=== PATIENT | male | born 1950 | race Caucasian/White ===

== ENCOUNTER 2025-04-15 12:57 | Outpatient (CLI) | payer MEDICARE, SELFPAY ==
--- NOTE | ~2025-04-15 | CT_ITS ---
EXAMINATION: CT_STKSHOLDWO_CT DATE: 04/15/2025 13:18 INDICATION: Left shoulder osteoarthritis. Preoperative planning. TECHNIQUE: Computed tomography (CT) of the left shoulder was performed without intravenous contrast. Automated exposure control and iterative reconstruction technique were employed. The dose-length product was 611.26 mGy-cm. COMPARISON: Left shoulder radiographs 03/18/2025 FINDINGS: Calcified left lung nodule and calcified left hilar lymph nodes are consistent with old granulomatous disease. There are changes of distal clavicle resection. No fracture. There is mild osteoarthritis of glenohumeral joint. There are suture anchors in the greater tuberosity of proximal humerus. There is mild fatty atrophy of the rotator cuff muscles. IMPRESSION: 1. Mild osteoarthritis of left glenohumeral joint. Reviewed, dictated and finalized at location E.
--- NOTE | 2025-04-15 13:15 | ECG_ITS ---
Test Date: 2025-04-15 13:30:54 Measurements Intervals [place] Rate: 64 P: 23 NE: 171 QRS: -34 QRSD: 91 T: 32 QT: 389 QTc: 402 Interpretive Statements SINUS RHYTHM LEFT AXIS DEVIATION INCOMPLETE RIGHT BUNDLE BRANCH BLOCK DELAYED PRECORDIAL R/S TRANSITION BORDERLINE ECG No previous ECG available for comparison Electronically Signed On 04-15-2025 13:37:26 CDT by Parminder Roque D.O.
--- OUTSIDE RECORDS SUMMARY | 2025-04-15 13:53 | XMS_ITS | Clinical Summary ---
Author Organization [address] Address [address] [place] [address] Care Team Providers Care Control Tower Operator Name Role Phone Kee Mcclendon MD Unavailable [phone] Adriana Durand DO Primary Care Provider [phone] Allergies Active Allergy Reactions Criticality Noted Date Comments Codeine Nausea only,Vomiting Reaction: NAUSEA, VOMITTING, Medications multivitamin with minerals tablet Take by mouth. Active aspirin-calcium carbonate 81 mg-300 mg calcium(777 mg) tablet Take 81 mg by mouth. 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 Patient tolerated the procedure well. Advised to watch for signs of infection or bleeding if any of these occur to go to the ER or call me. Advise that if there is limited to no improvement with this he should return to the office and we can discuss other options. If this is effective then we can watch and wait and depending on how long it is effective for we can discuss other options down the road. He exhibited understanding and is in agreement with this plan of care. Assessment & Plan (01/18/2025 10:56 AM CDT): I advised the patient of the findings. I do think based on his clinical exam that he is completely ruptured his rotator cuff tendon again. I went over with him that due to his osteoarthritis in his age she is not necessarily a great candidate for a rotator cuff repair at this point, so we need to treat this conservatively. I offered him a steroid injection under ultrasound guidance into the glenohumeral joint for pain control as well as to improve the pain inhibition that he is currently having. I also advised on use of physical therapy to help strengthen in his shoulder and stabilize it better. We will do these two things and watch and wait and see how he improves. I did advise him that there is an increased risk of an adhesive capsulitis as a result of this, and if this does occur it may require further intervention. He exhibited understanding and is in agreement with this plan of care. Dyslipidemia 01/26/2018 Chronic ITP (idiopathic thrombocytopenia) 2017 Gastrocnemius equinus of left lower extremity Gastrocnemius equinus of right lower extremity 0 10/13/2016 GERD (gastroesophageal reflux disease) 6 Encounters Date Type Department Care Team Description 02/06/2025 Orders Only [facility] Primary Care at [address] [place] [address] Nolan Cruz DO Primary osteoarthritis of left shoulder (Primary Dx); Left shoulder pain, unspecified chronicity; Traumatic complete tear of left rotator cuff, initial encounter 02/04/2025 9:00 AM CDT Office Visit [facility] at [address] [address] Nolan Cruz, Primary osteoarthritis of left shoulder (Primary Dx); Left shoulder pain, unspecified chronicity; Traumatic complete tear of left rotator cuff, initial encounter 01/18/2025 10:00 AM CDT Office Visit [facility] at [address] [address] Nolan Cruz, Left shoulder pain, unspecified chronicity (Primary Dx); Traumatic complete tear of left rotator cuff, initial encounter; Primary osteoarthritis of left shoulder 01/18/2025 9:35 AM CDT Ancillary Procedure [facility] at [address] [address] Left shoulder pain, unspecified chronicity 01/18/2025 Orders Only [facility] Primary [facility] at [address] [address] Nolan Cruz, Primary osteoarthritis of left shoulder (Primary Dx); Left shoulder pain, unspecified chronicity; Traumatic complete tear of left rotator cuff, initial encounter from Last 3 Months Surgical History Surgery Date Site/Laterality Comments REPLACEMENT TOTAL KNEE BILATERAL TOE SURGERY SHOULDER ARTHROSCOPY W/ ROTATOR CUFF REPAIR Bilateral BACK SURGERY WRIST ARTHRODESIS 01/06/2023 Left Medical History Medical History Date Comments PONV (postoperative nausea and vomiting) Hx of adenomatous colonic polyps Motion sickness Arthritis Hypertension Degenerative joint disease Dyslipidemia GERD (gastroesophageal reflux disease) Thrombocytopenia Social History Tobacco Use Types Packs/Day Years Used Date Smoking Tobacco: Never Smokeless Tobacco: Never Tobacco Cessation:Counseling Given: Not Answered Alcohol Use Standard Drinks/Week Comments Yes 0 (1 standard drink = 0.6 oz pur e alcohol) AUDIT-C Answer Date Recorded Q1: How often do you have a drink containing alc ohol? Monthly or less 12/28/2022 Q2: How many drinks containi ng alcohol do you have on a typical day when you are drinking? 1 or 2 12/28/2022 Q3: How often do you have si x or more drinks on one occasion? Less than monthly 12/28/2022 Personal Safety Answer Date Recorded Have you ever been in or are you currently in a harmful physical or emotional relationship or is someone making you feel afraid or unsafe? Denies 01/06/2023 Sex and Gender Information Value Date Recorded Sex Assigned at Not on file Legal Sex Male 1:44 AM [employer] Gender Identity Male 11/29/2023 4:22 PM CDT Sexual Orientation Not on file Obstetrics History Last Filed Vital Signs Vital Sign Reading Time Taken Comments Blood Pressure 210/88 02/04/2025 8:57 AM CDT Pulse 66 02/04/2025 8:57 AM CDT Temperature 36.3 C (97.3 F) 01/06/2023 11:50 AM CDT Respiratory Rate 18 01/06/2023 12:2 0 PM CDT Oxygen Saturation 100% 01/06/2023 12: 20 PM CDT Inhaled Oxygen Concentration - - Weight 104.1 kg (229 lb 9.6 oz) 02/04/2025 8:57 AM CDT Height 181.6 cm (5' 11.5) 01/18/2025 9:46 AM CD T Body Mass Index 31.58 01/18/2025 9:46 AM CDT Plan of Treatment Health Maintenance Due Date Last Done Comments Colon Cancer Screening-Colonoscopy 1950 Depression Screening 1950 Hepatitis C Screening 1950 Hepatitis B Screening 1968 Pneumococcal vaccine 65+ (1 of 1 - PCV) 2000 Well Visit 65+ 2015 DTaP/Tdap/Td Vaccine (1 - Tdap) 10/04/2022 3 Fall Risk Assessment 12/29/2023 12/28/2022 Influenza Vaccine (#1) 2025 4, 04/20/2021, 03/31/2020 Zoster Vaccine Completed 04/09/2019, 12/07/2018 Medical Devices Implanted Type Area Recoverer Device Identifier Shelf Expiration Date Model / Serial / Lot Other - See Comments Other - see comments Bilatera l: Knee Description:Bilateral knee r eplacement Synthes Lcp 118mm Fusion Wrist Standard Bend Plate Bone Stainless Steel 02.110.150 - [id number] Implanted:Qty: 1 on 01/06/2023 by Titi Diaz MD at [facility] Left: Wrist Synthes I 02.110.15 0 / / Lifenet Vivigen Allograft Graft 5 Cc Bone Cortical Cancellous Deminerali Bl-1500-002 - [id number] - [id number] Implanted:Qty: 1 on 01/06/2023 by Titi Diaz MD at [facility] Left: Wrist Lifenet [id number] 06/08/2023 BL-1500-0 2023-05-2 9 / Synthes 2.7mm 2.1mm 12mm Self Tap Lock Stardrive Thread Head Profile T8 202.212 - [id number] Implanted:Qty: 1 on 01/06/2023 by Titi Daiz MD at [facility] Left: Wrist Synthes I 202.212 / / Synthes 2.7mm 2.1mm 14mm Self Tap Lock Stardrive Thread Head Profile T8 202.214 - [id number] Implanted:Qty: 1 on 01/06/2023 by Titi Diaz MD at [facility] Left: Wrist Synthes I 202.214 / / Synthes 2.7mm 5mm 16mm 2.5mm Self Tap Stardrive Cortical T8 Screw Bone 202.876 - [id number] Implanted:Qty: 1 on 01/06/2023 by Titi Diaz MD at [facility] Left: Wrist Synthes I 202.876 / / Synthes 3.5mm 2.9mm 16mm Self Tap Lock Stardrive Conical Head T15 Full 212.104 - [id number] Implanted:Qty: 1 on 01/06/2023 by Titi Diaz MD at [facility] Left: Wrist Synthes I 212.104 / / Synthes 3.5mm 2.9mm 18mm Self Tap Lock Stardrive Conical Head T15 Full 212.105 - [id number] Implanted:Qty: 1 on 01/06/2023 by Titi Diaz MD at [facility] Left: Wrist Synthes I 212.105 / / Synthes 3.5mm 2.9mm 18mm Self Tap Lock Stardrive Conical Head T15 Full 212.105 - [id number] Implanted:Qty: 1 on 01/06/2023 by Titi Diaz MD at [facility] Left: Wrist Synthes I 212.105 / / Synthes 3.5mm 6mm 18mm 2.5mm Self Tap Small Hexagonal Socket Low Profile 204.818 - [id number] Implanted:Qty: 1 on 01/06/2023 by Titi Diaz MD at [facility] Left: Wrist Synthes I 204.818 / / Procedures Procedure Name Priority Date/Time Associated Diagnosis Comments XR SHOULDER LEFT 2 OR MORE VIEWS Routine 01/18/2025 9:49 AM CDT Left shoulder pain, unspecified chronicity from Last 3 Months Results * XR Shoulder Left 2 or More Views (01/18/2025 9:49 AM CDT) Anatomical Region Laterality Modality Upper Extremities, Shoulder Left Digi jessica Radiography 01/18/2025 10:1 2 AM CDT Narrative 01/18/2025 10:16 AM CDT EXAM DESCRIPTION: XR SHOULDER LEFT 2 OR MORE VIEWS REASON FOR STUDY: pain Left shoulder pain with LROM after injury December 10. Surgery x 20 years TECHNIQUE: There are 4 radiographic view(s) of the left shoulder . COMPARISON: No prior. FINDINGS: Normal mineralization. No acute fracture or dislocation. Mild osteoarthritis glenohumeral joint. Likely prior decompression of the AC joint. Mild heterotopic ossification. Anchors overlie the humeral head. Adjacent ribs are unremarkable. Density seen of the lateral aspect of the left upper chest. This is overlapped by osseous structures. Dedicated chest x-ray recommended in follow-up with arms elevated. IMPRESSION: 1. Indeterminate density is seen of the lateral aspect of the left upper chest. While granuloma is a consideration, follow-up chest x-ray with arms elevated is recommended to ensure benign etiology. 2. Mild osteoarthritis glenohumeral joint. 3. Prior decompression of the AC joint. Anchors overlie the left humeral head. THIS IS AN ELECTRONICALLY VERIFIED FINAL REPORT 01/18/2025 10:16 AM - Electronically signed by Nolan Longoria M.D. MJ T: Report ID: [id number] Reading Location: [id number] Procedure Note Nolan Longoria MD - 01/18/2025 EXAM DESCRIPTION: XR SHOULDER LEFT 2 OR MORE VIEWS REASON FOR STUDY: pain Left shoulder pain with LROM after injury December 10. Surgery x 20 years TECHNIQUE: There are 4 radiographic view(s) of the left shoulder . COMPARISON: No prior. FINDINGS: Normal mineralization. No acute fracture or dislocation. Mild osteoarthritis glenohumeral joint. Likely prior decompression of the AC joint. Mild heterotopic ossification. Anchors overlie the humeral head. Adjacent ribs are unremarkable. Density seen of the lateral aspect of the left upper chest. This is overlapped by osseous structures. Dedicated chest x-ray recommended in follow-up with arms elevated. IMPRESSION: 1. Indeterminate density is seen of the lateral aspect of the left upper chest. While granuloma is a consideration, follow-up chest x-ray witharms elevated is recommended to ensure benign etiology. 2. Mild osteoarthritis glenohumeral joint. 3. Prior decompression of the AC joint. Anchors overlie the lefthumeral head. THIS IS AN ELECTRONICALLY VERIFIED FINAL REPORT 01/18/2025 10:16 AM - Electronically signed by Nolan Longoria M.D. T: Report ID: [id number] Reading Location: [id number] Nolan Cruz DO IMG XR PROCEDURES Cristiane l Result from Last 3 Months Insurance [facility] MEDICARE [facility] MEDICARE [facility] Care Teams Control Tower Operator Relationship Specialty Start Date End Date Adriana Durand DO PCP - General Family Medicine 12/24/24 Kee Mcclendon MD Resident Pediatrics 12/28/22
--- OUTSIDE RECORDS SUMMARY | 2025-04-15 13:55 | XMS_ITS | Encounter Summary ---
Author Organization [facility] Address [address] [facility] [place] [facility] [place] [address] Phone Care Team Providers Care Reuse Technician Name Role Phone Oscar Gotti DPM Unavailable [phone] Mallorie Hunter MD Primary Care Provider Adriana Durand DO Primary Care Provider [phone] Reason for Visit * Reason Comments Medication Refill Encounter Details Date Type Department Care Team (Late st Contact Info) Description 06/03/2023 Refill [facility] - Family Medicine [facility] [address] [place] [address] [place] [address] [place] [address] Medication Refill Social History Tobacco Use Types Packs/Day Years Used Date Smoking Tobacco: Never Smokeless Tobacco: Never Alcohol Use Standard Drinks/Week Comments Yes 6 (1 standard drink = 0.6 oz pur e alcohol) a week PHQ-2 Answer Date Recorded Total Score - Questions 1-9 0 04/10 Education Answer Date Recorded What is the highest level of school you have completed or the highest degree you have received? 12th grade 12/13/2022 Sex and Gender Information Value Date Recorded Sex Assigned at Not on file Legal Sex Male 11:44 PM CDT Gender Identity Not on file Sexual Orientation Not on file Occupation Industry Job Start Date Job End Date Retired [employer] Not on file Not on file Not on file documented as of this encounter Miscellaneous Notes * Telephone Encounter - Cherri Clifton RN - 06/03/2023 2:44 PM IN SERVICE EDUCATION TEACHER 90 day supply filled 04/06/23 SERVICE EDUCATION TEACHER documented in this encounter Plan of Treatment Upcoming Encounters Date Type Department Care Team (Late st Contact Info) Description 10/21/2025 10:20 AM CDT Office Visit [facility] - Family Medicine [facility] [address] [place] [address] Adriana Durand DO [address] [facility] [address] [address] documented as of this encounter Visit Diagnoses Not on filedocumented in this encounter Additional Health Concerns Assessment Noted Time PHQ-9 Depression Total Score: 0 04/20/20 21 9:00 AM CDT documented as of this encounter Care Teams Reuse Technician Relationship Specialty Start Date End Date Mallorie Hunter MD PCP - General Family Medicine 06/06/17 12/07/23 Adriana Durand DO [facility] [address] [address] PCP - General Family Medicine 12/08/23 Oscar Gotti DPM Consulting Physician Podiatry 10/13/16 documented as of this encounter
--- OUTSIDE RECORDS SUMMARY | 2025-04-15 13:55 | XMS_ITS | Clinical Summary ---
Author Organization [facility] Address [address] [place] [address] Phone Care Team Providers Care Business Systems Administrator Name Role Phone Oscar Gotti DPM Unavailable [phone] Adriana Durand DO Primary Care Provider [phone] Allergies Active Allergy Reactions Criticality Noted Date Comments Codeine Other (see Comments) GI upset, nausea and vomiting Medications Multiple Vitamins-Mineral s (MULTIVITAMIN PO) Take 1 Tab by mouth daily. Active Acetaminophen (TYLENOL PO) Take by mouth as needed. Active Saw Lasara 450 MG Capsule Take 1 Cap by mouth daily. Active famotidine (PEPCID) 20 MG Tablet Take 1 Tablet by mouth 2 times daily. 90 Tablet 3 12/06/2024 Active losartan (COZAAR) 100 MG Tablet Take 1 Tablet by mouth daily. 90 Tablet 3 02/28/2025 Active naproxen (NAPROSYN) 500 MG Tablet Take 1 Tablet by mouth 2 times daily (with meals). 180 Tablet 3 02/28/2025 Active Active Problems Problem Noted Date Diagnosed Date Essential hypertension 11/02/2021 Polycythemia 05/04/2021 Chronic ITP (idiopathic thrombocytopenia) 2017 Tendonitis of foot 10/26/2016 Gastrocnemius equinus of right lower extremity 0 10/13/2016 Gastrocnemius equinus of left lower extremity Pain in right foot 10/13/2016 Synovitis of right foot 10/13/2016 GERD (gastroesophageal reflux disease) 6 DJD (degenerative joint disease) Dyslipidemia Encounters Date Type Department Care Team Description 02/27/2025 MyChart RX Renewal [facility] [address] [place] [address] Adriana Durand DO Medication Renewal Reviewed 02/19/2025 MyChart RX Renewal [facility] [address] [place] [address] Adriana Durand, Medication Renewal Declined from Last 3 Months Immunizations Immunization Administration Dates Next Due Covid-19, Mrna, Lnp-s, PF, 1 00 mcg/0.5 mL Dose (Moderna) 09/18/2020,08/21/2020 Influenza Vaccine, Quadrivalent, PF 04/20/2021,0 03/31/2020 Influenza, Quadrivalent, Adjuvanted 04/26/2023,1 Influenza, Trivalent, Adjuvanted, PF 04/17/2024 TD VACCINE 10/03/2022 Zoster Vaccine Recombinant 04/09/2019,12/07/2018 Family History Medical History Relation Name Comments Emphysema Father Diabetes Mother Diabetes Sister Relation Name Status Comments Father Mother Alive Sister Social History Tobacco Use Types Packs/Day Years Used Date Smoking Tobacco: Never Smokeless Tobacco: Never Tobacco Cessation:Counseling Given: Not Answered Alcohol Use Standard Drinks/Week Comments Yes 6 (1 standard drink = 0.6 oz pur e alcohol) a week [facility] Utilities Answer Date Recorded In the past 12 months has e [employer], [employer], oil, or water [employer] threatened to shut off services in your home? No 04/17/2024 Social Connection and Isolation Panel Answer Date Recorded In a typical week, how many times do you talk on the phone with family, friends, or neighbors? Patient declined 04/17/2024 Frequency of Social Gatherings with Friends and Family Not on file 04/17/2024 Attends Synagogue Services Not on file 04/17 Active Member of Clubs or Organizations Not on f ile 04/17/2024 Attends Club or Organization Meetings Not on francisco e 04/17/2024 Marital Status Not on file 04/17/2024 AUDIT-C Answer Date Recorded Q1: How often do you have a drink containing alc ohol? 2-3 times a week 04/17/2024 Q2: How many drinks containi ng alcohol do you have on a typical day when you are drinking? Patient declined 04/17/2024 Frequency of Binge Drinking Not on file 02/2024 Overall Financial Resource Strain (CARDIA) Answe r Date Recorded How hard is it for you to pa y for the very basics like food, housing, medical care, and heating? Not hard at all 04/17/2024 PHQ-2 Answer Date Recorded Total Score - Questions 1-9 0 11/09 [facility] of Occupat ional Health - Occupational Stress Questionnaire Answer Date Recorded Do you feel stress - tense, restless, nervous, or anxious, or unable to sleep at night because your mind is troubled all the time - these days? Not at all 04/17/2024 Exercise Vital Sign Answer Date Recorde d On average, how many days pe r week do you engage in moderate to strenuous exercise (like a brisk walk)? 7 days 04/17/2024 On average, how many minutes do you engage in exercise at this level? 50 min 04/17/2024 Hunger Vital Sign Answer Date Recorded Within the past 12 months, y ou worried that your food would run out before you got the money to buy more. Never true Within the past 12 months, t he food you bought just didn't last and you didn't have money to get more. Patient declined 02/2024 PRAPARE - Transportation Answer Date Re corded Lack of Transportation (Medical) Not on file 04/17/2024 In the past 12 months, has l ack of transportation kept you from meetings, work, or from getting things needed for daily living? Patient declined 04/17/2024 Housing Stability Vital Sign Answer Andrew e Recorded In the last 12 months, was t here a time when you were not able to pay the mortgage or rent on time? Patient declined 04/17/20 24 Number of Times Moved in the Last Year Not on fi le 04/17/2024 Homeless in the Last Year Not on file 2023 Education Answer Date Recorded What is the highest level of school you have completed or the highest degree you have received? 12th grade 12/13/2022 Sex and Gender Information Value Date Recorded Sex Assigned at Not on file Legal Sex Male 11:44 PM CDT Gender Identity Not on file Sexual Orientation Not on file Occupation Industry Job Start Date Job End Date Retired [employer] Not on file Not on file Not on file Last Filed Vital Signs Vital Sign Reading Time Taken Comments Blood Pressure 132/70 12/06/2024 9:27 AM CDT Pulse 55 12/06/2024 9:27 AM CDT Temperature 36.1 C (97 F) 12/06/2024 9:27 AM CDT Respiratory Rate 16 12/06/2024 9:27 AM CDT Oxygen Saturation 96% 12/06/2024 9:27 AM CDT Inhaled Oxygen Concentration - - Weight 101.6 kg (224 lb) 12/06/2024 9:27 AM CDT Height 182.9 cm (6') 12/06/2024 9:27 AM CDT Body Mass Index 30.38 12/06/2024 9:27 AM CDT Plan of Treatment Upcoming Encounters Date Type Department Care Team (Late st Contact Info) Description 10/21/2025 10:20 AM CDT Office Visit [facility] - Family Medicine - [place] [address] [place] [address] Adriana Durand, DO 2 [facility]. [address] [place] [id number] Health Maintenance Due Date Last Done Comments Cologuard 1995 Immunochemical Fecal Occult Blood 1995 Medicare Initial AWV [id number] 05/11/2016 Colonoscopy 12/13/2022 12/13/2017 Influenza Immunization (#1) 2025 10/0 02/2024, 04/26/2023, 04/27/2022, Additional history exists Zoster Immunization Completed 04/09/2019, 9 SARS-COV-2 Immunization Discontinued 05/09/20, 09/18/2020, 08/21/2020 PSA Discussion Discontinued 12/07/2022, 12/09, 11/24/2020, Additional history exists Hepatitis C Virus (HCV) Screening Completed 12/13/2022 Colorectal Cancer Screening Discontinued Hepatitis B Immunization Aged Out No longer eligible based on patient's age to complete this topic Human Papillomavirus (HPV) Immunization Aged Out No longer eligible based on patient's age to complete this topic Meningococcal Immunization (ACWY) Aged Out No longer eligible based on patient's age to complete this topic Pneumococcal Immunization (50+ years) Discontinued Respiratory Syncytial Virus (RSV) Immunization (Adult) Discontinued Rotavirus Immunization Aged Out No lo nger eligible based on patient's age to complete this topic TdaP Immunization Discontinued Procedures Procedure Name Priority Date/Time Associated Diagnosis Comments HEPATITIS C ANTIBODY Routine 12/13/2022 9:59 AM CDT Encounter for hepatitis C screening test for low risk patient PSA SCREEN Routine 12/07/2022 7:23 AM CDT Screening for prostate cancer from Last 3 Months or Most Recently Relevant to Health Maintenance Results * HEPATITIS C ANTIBODY (12/13/2022 9:59 AM CDT) hepatitis C antibody 0.04 <1 S/CO [facility] ARCH [id number] B 12/13/2022 9:05 PM CDT [facility] Comment: Signal/Cutoff ratio < 0.79 is Nondetected Signal/Cutoff ratio 0.80-0.99 is Grayzone Signal/Cutoff ratio > 0.99 is Detected Supplemental assays are recommended if signal/cutoff ratio is >/=1.00. Signal/cutoff ratio result >/= 5.00 is 97% predictive of positivity for recombinant immunoblot assay (RIBA) and will be reported to the [place] [facility] of Public [facility] as required. Blood Venipuncture / Unknown 12/13/2022 9:59 AM CDT 12/13/2022 9:59 AM CDT us Mallorie Hunter MD CHEMISTRY ORDERABLES Final Result [facility] [address] [place] [address], * PSA SCREEN (12/07/2022 7:23 AM CDT) PSA SCREEN, TOTAL 0.30 <=4.00 ng/mL 12/07/2022 1:10 PM CDT [facility] Blood Venipuncture / Unknown 12/07/2022 7:23 AM CDT 12/07/2022 7:23 AM CDT Mallorie Hunter MD CHEMISTRY ORDERABLES Final Result [facility] [address] [place] [address] from Last 3 Months or Most Recently Relevant to Health Maintenance Insurance MEDICARE [facility] Care Teams Business Systems Administrator Relationship Specialty Start Date End Date Adriana Durand DO [address] [facility] [address] [address] PCP - General Family Medicine 12/08/23 Oscar Gotti DPM Consulting Physician Podiatry 10/13/16
--- OUTSIDE RECORDS SUMMARY | 2025-04-15 13:55 | XMS_ITS | Encounter Summary ---
Author Organization [facility] Address [address] [facility] [place] [address] Phone Care Team Providers Care Cutter And Paster [employer] Name Role Phone Oscar Gotti DPM Unavailable [phone] Mallorie Hunter MD Primary Care Provider Adriana Durand DO Primary Care Provider [phone] Reason for Visit * Reason Comments Medication Refill Encounter Details Date Type Department Care Team (Late st Contact Info) Description 05/28/2023 [facility]ill [facility] [address] [place] [address] [place] [address] [place] [address] Medication Refill Social History Tobacco Use Types [...] Job Start Date Job End Date Retired [employer] Not on file Not on file Not on file documented as of this encounter Miscellaneous Notes * Telephone Encounter - Hetal Sotelo RN - 05/29/2023 10:02 AM REPLANTER Medication failed the protocol, provider to review and approve the medication order if appropriate. Requested Prescriptions Pending Prescriptions Disp Refills naproxen (NAPROSYN) 500 MG Tablet [Pharmacy Med Name: Naproxen 500 MG Oral Tablet] 180 Tablet 3 Sig: TAKE 1 TABLET BY MOUTH TWICE DAILY WITH MEALS NSAIDs Protocol Failed - 05/28/2023 6:50 PM Failed - Not delegated, patient not between 1 and 65 years of age Passed - Normal serum creatinine in past 12 months CREATININE, BLOOD Date Value Ref Range Status 04/26/2023 1.03 0.70 - 1.30 mg/dL Final Passed - Visit with relevant provider in past 12 months or upcoming 90 days Recent Visits Date Type Provider Dept 04/26/23 Office Visit Mallorie Hunter MD [facility] 12/13/22 Office Visit Mallorie Hunter MD [facility] Showing recent visits within past 365 days and meeting all other requirements Future Appointments No visits were found meeting these conditions. Showing future appointments within next 90 days and meeting all other requirements Passed - No matching NSAID med order in past 45 days No matching medication orders between 04/14/2023 10:02 AM and 05/29/2023 10:02 AM Passed - AST less than 55 or ALT less than 90 in past 12 months SGOT (AST) Date Value Ref Range Status 04/26/2023 28 5 - 34 U/L Final SGPT (ALT) Date Value Ref Range Status 04/26/2023 46 0 - 55 U/L Final Passed - HGB greater than 10 or HCT greater than 30 in past 12 months HEMOGLOBIN (HGB) Date Value Ref Range Status 04/26/2023 16.7 (H) 13.0 - 16.5 g/dL Final HEMATOCRIT (HCT) Date Value Ref Range Status 04/26/2023 50.5 (H) 38.0 - 50.0 % Final Refused Prescriptions Disp Refills omeprazole (PriLOSEC) 40 MG CAPSULE DELAYED RELEASE [Pharmacy Med Name: Omeprazole 40 MG Oral Capsule Delayed Release] 90 Capsule 3 Sig: TAKE 1 CAPSULE BY MOUTH DAILY Proton Pump Inhibitors Protocol Passed - 05/28/2023 6:50 PM Passed - Visit with relevant provider in past 12 months or upcoming 90 days Recent Visits Date Type Provider Dept 04/26/23 Office Visit Mallorie Hunter MD [facility] 12/13/22 Office Visit Mallorie Hunter MD [facility] Showing recent visits within past 365 days and meeting all other requirements Future Appointments No visits were found meeting these conditions. Showing future appointments within next 90 days and meeting all other requirements ANTER documented in this encounter Plan of Treatment Upcoming Encounters Date Type Department Care Team (Late st Contact Info) Description 10/21/2025 10:20 AM CDT Office Visit [facility] - Family Medicine - [place] [address] [place] [address] Adriana Durand DO [address] [address] documented as of this encounter Visit Diagnoses Not on filedocumented in this encounter Additional Health Concerns Assessment Noted Time PHQ-9 Depression Total Score: 0 04/20/20 21 9:00 AM CDT documented as of this encounter Care Teams Cutter And Paster [employer] Relationship Specialty Start Date End Date Mallorie Hunter MD PCP - General Family Medicine 06/06/17 12/07/23 Adriana Durand DO 2 [facility] [address] [place] [address] PCP - General Family Medicine 12/08/23 Oscar Gotti DPM Consulting Physician Podiatry 10/13/16 documented as of this encounter
--- OUTSIDE RECORDS SUMMARY | 2025-04-15 13:55 | XMS_ITS | Encounter Summary ---
Author Organization [facility] Address [address] [facility] [place] [address] Phone Care Team Providers Care Mucker Cofferdam Name Role Phone Oscar Gotti DPM Unavailable [phone] Mallorie Hunter MD Primary Care Provider Adriana Durand DO Primary Care Provider [phone] Reason for Visit * Reason Comments Medication Refill Encounter Details Date Type Department Care Team (Late st Contact Info) Description 10/30/2023 Refill [facility] [address] [place] [address] [place] [address] [place] [address] Medication Refill Social History Tobacco Use Types [...] Job Start Date Job End Date Retired [employer] Not on file Not on file Not on file documented as of this encounter Miscellaneous Notes * Telephone Encounter - Meghna Whitehead RN - 10/31/2023 1:43 PM CDT Rx 06/10/23 - #90 + 1 refill = 6 month supply - [facility] documented in this encounter Plan of Treatment Upcoming Encounters Date Type Department Care Team (Late st Contact Info) Description 10/21/2025 10:20 AM CDT [facility] - [place] [address] [place] [address] Adriana Durand DO 2 [facility] [address] [address] documented as of this encounter Visit Diagnoses Not on filedocumented in this encounter Additional Health Concerns Assessment Noted Time PHQ-9 Depression Total Score: 0 04/20/20 21 9:00 AM CDT documented as of this encounter Care Teams Mucker Cofferdam Relationship Specialty Start Date End Date Mallorie Hunter MD PCP - General Family Medicine 06/06/17 12/07/23 Adriana Durand DO 2 [facility] [address] [address] PCP - General Family Medicine 12/08/23 Oscar Gotti DPM Consulting Physician Podiatry 10/13/16 documented as of this encounter
--- OUTSIDE RECORDS SUMMARY | 2025-04-15 13:55 | XMS_ITS | Encounter Summary ---
Author Organization [facility] Address [address] [facility] [place] [place] [address] Phone Care Team Providers Care Playground Supervisor Name Role Phone Oscar Gotti DPM Unavailable [phone] Mallorie Hunter MD Primary Care Provider Adriana Durand DO Primary Care Provider [phone] Reason for Visit * Reason Comments Medication Refill Encounter Details Date Type Department Care Team (Late st Contact Info) Description 04/23/2021 Refill [facility] - Family Medicine [facility] [address] [place] [address] [place] [address] [place] [address] Medication Refill Social History Tobacco Use Types Packs/Day Years Used Date Smoking Tobacco: Never Smokeless Tobacco: Never Alcohol Use Standard Drinks/Week Comments Yes 6 (1 standard drink = 0.6 oz pur e alcohol) a week PHQ-2 Answer Date Recorded Total Score - Questions 1-9 0 04/10 Sex and Gender Information Value Date Recorded Sex Assigned at Not on file Legal Sex Male 11:44 PM CDT Gender Identity Not on file Sexual Orientation Not on file Occupation Industry Job Start Date Job End Date Retired [employer] Not on file Not on file Not on file COVID-19 Exposure Response Date Recorded In the last month, have you been in contact with someone who was confirmed or suspected to have Coronavirus / COVID-19? No / Unsure 04/20/2021 8:36 AM CDT documented as of this encounter Miscellaneous Notes * Telephone Encounter - Meghna Whitehead RN - 04/23/2021 3:23 PM CDT Last ordered: 3 days ago by Mallorie Hunter MD Last refill: 04/20/2021 * Telephone Encounter - Tara Mas RN - 04/23/2021 11:40 AM CDT Mychart request documented in this encounter Plan of Treatment Upcoming Encounters Date Type Department Care Team (Late st Contact Info) Description 10/21/2025 10:20 AM CDT [facility] Visit [facility] [address] [place] [address] Adriana Durand, DO [address] [address] documented as of this encounter Visit Diagnoses Not on filedocumented in this encounter Additional Health Concerns Infection Onset Date Last Indicated Resolved Time COVID - 19 02/11/2023 02/11/2023 02/11/2023 8:56 AM CDT COVID - 19 02/11/2023 02/11/2023 02/21/2023 12:1 6 AM CDT COVID - 19 Confirmed 02/11/2023 02/11/2023 023 12:16 AM CDT Assessment Noted Time PHQ-9 Depression Total Score: 0 04/20/20 21 9:00 AM CDT documented as of this encounter Care Teams Playground Supervisor Relationship Specialty Start Date End Date Mallorie Hunter MD PCP - General Family Medicine 06/06/17 12/07/23 Adriana Durand DO [address] [address] PCP - General Family Medicine 12/08/23 Oscar Gotti DPM Consulting Physician Podiatry 10/13/16 documented as of this encounter
[2025-04-15 14:29] LABS: Hematocrit 48.3 % (42.0-52.0); Hemoglobin 16.1 g/dL (14.0-18.0)
[2025-04-15 14:48] LABS: Albumin Level 4.4 g/dL (3.5-5.1); Estimated Glomerular Filt Rate > 60
== END 2025-04-15 12:58 | disposition home or self-care (01) ==
PROVIDERS: PCP Student in an Organized Health Care Education/Training Program; Visit Provider Orthopaedic Surgery
DX: M75.102 Unspecified rotator cuff tear or rupture of left shoulder, not specified as traumatic (principal); Z01.818 Encounter for other preprocedural examination; M19.012 Primary osteoarthritis, left shoulder
CPT/HCPCS: 36415; 73200; 82040; 82565; 85014; 85018; 93005